=== PATIENT | female | born 2000 | race Hispanic/Latino ===

== ENCOUNTER 2019-05-22 10:52 | Observation (INO) | payer OTHER ==
[~2019-05-22] VITALS: Ht 160 cm; Wt 137.0 kg
[2019-05-22 12:08] LABS: BILIRUBIN,URINE Small (NEGATIVE); COLOR,URINE Dark Yellow (YELLOW); GLUCOSE, URINE (UA) Negative (NEGATIVE); KETONES,URINE Negative (NEGATIVE); LEUKOCYTE ESTERASE ,URINE Small (NEGATIVE); NITRATE,URINE Negative (NEGATIVE); OCCULT BLOOD,URINE Negative (NEGATIVE); PH,URINE 5.5 (5.0-8.0); PROTEIN,URINE Negative (NEGATIVE)
[2019-05-22 12:10] LABS: APPEARANCE,URINE SLIGHTLY CLOUDY (CLEAR)
[2019-05-22 12:21] LABS: BACTERIA,URINE Moderate /HPF (None Seen)
[2019-05-22] MEDS ORDERED: LACTATED RINGERS 1000ML 1,000 ML IV PRN (13:29)
[2019-05-22] MEDS ORDERED: CEFTRIAXONE SODIUM 1 GM IVP SCH (13:30)
== END 2019-05-22 14:42 | disposition home or self-care (01) ==
LOC: EDH 10:52 → LDH 11:30
PROVIDERS: ADMIT Obstetrics & Gynecology; ATTEND Obstetrics & Gynecology
DX: O62.9 Abnormality of forces of labor, unspecified (principal); Z3A.32 32 weeks gestation of pregnancy
CPT/HCPCS: 81001; 99284; G0378 ×3; J0696; J7120; 96360